=== PATIENT | male | born 1980 | race Caucasian/White ===

== ENCOUNTER 2017-03-17 21:36 | Emergency (ER) | payer OTHER ==
[2017-03-17] MEDS ORDERED: HYDROmorphone 1 MG/ML 1 ML SYRINGE IVP STA (22:01)
[2017-03-17] MEDS ORDERED: ONDANSETRON 4 MG/2 ML VIAL IVP STA (22:01)
[2017-03-17] MEDS ORDERED: KETOROLAC 30 MG/ML 1 ML VIAL IVP STA (22:01)
[2017-03-17] MEDS ORDERED: SODIUM CHLORIDE 0.9% 1,000 ML IV STA (22:01)
[2017-03-17 22:49] LABS: Basophils % (A) 1 %; CH 32.9; CHCM 35.7; Eosinophils # (A) 0.2 k/uL (0-0.7); Eosinophils % (A) 3 %; HCT 44.5 % (39.0-53.0); HDW 2.81; HGB 15.4 gm/dL (13.0-17.5); Luc # (Auto) 0.16; Luc % (Auto) 2; Lymphocytes # (A) 2.3 k/uL (1.0-4.8); Lymphocytes % (A) 31 %; MCHC 34.5 g/dL (31.0-37.0); MCV 92.7 fL (80.0-100.0); Mean Platelet Volume 7.8; Monocytes # (A) 0.4 k/uL (0-1.0); Monocytes % (A) 5 %; Neutrophils # (A) 4.3 k/uL (1.3-7.7); Neutrophils % (A) 58 %; RDW 12.8 % (11.5-15.5); WBC 7.3 k/uL (3.8-10.6)
[2017-03-17 22:54] LABS: Amorphous Sediment,Urine Rare /hpf; Appearance,Urine Cloudy (Clear); Bacteria,Urine Rare /hpf; Bilirubin,Urine Negative (Negative); Glucose,Urine (UA) Negative (Negative); Ketones,Urine Negative (Negative); Leukocyte Esterase,Urine Negative (Negative); Mucus,Urine Rare /hpf; Nitrite,Urine Negative (Negative); PH, Urine 6.5 (5.0-8.0); Particle Count 4681; Protein,Urine Negative (Negative); RBC,Urine 115 /hpf (0-5); Specific Gravity,Urine 1.013 (1.001-1.035); Squamous Epithelial Cell,Urine 1 /hpf (0-4); UA Billing (MACRO vs. MICRO) MICRO; Urobilinogen,Urine <2.0 mg/dL (<2.0); WBC,Urine 3 /hpf (0-5)
[2017-03-17 22:55] LABS: ALT 56 U/L (21-72); AST 32 U/L (17-59); Alkaline Phosphatase 78 U/L (38-126); Amylase 52 U/L (30-110); Anion Gap 10 mmol/L; Blood Urea Nitrogen 14 mg/dL (9-20); Calcium 9.2 mg/dL (8.4-10.2); Carbon Dioxide 25 mmol/L (22-30); Chloride 105 mmol/L (98-107); Glucose 96 mg/dL (74-99); Non-African American GFR(MDRD) >60 (>60 ml/min/1.73 sqM); Potassium 3.4 mmol/L (3.5-5.1); Sodium 140 mmol/L (137-145); Total Bilirubin 0.6 mg/dL (0.2-1.3); Total Protein 7.1 g/dL (6.3-8.2)
--- NOTE | 2017-03-17 23:10 | XR ---
EXAM: XR Abdomen Complete, 2 or More Views CLINICAL HISTORY: Sharp right lower quadrant pain. TECHNIQUE: Upright frontal views of the abdomen/pelvis. Total images: 2. COMPARISON: No relevant prior studies available. FINDINGS: Intraperitoneal space: No free fluid. Gastrointestinal tract: No distended loops of bowel or air-fluid levels Bones/joints: Unremarkable as visualized. Soft tissues: Surgical clips project in the region of the right groin/scrotum. No suspicious calcification. IMPRESSION: 1. Nonobstructive bowel gas pattern. 2. No free fluid.
[2017-03-18 00:30] VITALS: RESP 17
--- NOTE | 2017-03-18 01:10 | CT ---
EXAM: CT Abdomen and Pelvis Without Intravenous Contrast CLINICAL HISTORY: Pain. TECHNIQUE: Axial computed tomography images of the abdomen and pelvis without intravenous contrast. CTDI is 11.80 mGy and DLP is 645.30 mGy-cm. CTDI is 12.50 mGy and DLP is 683.00 mGy-cm. CTDI is 12.50 mGy and DLP is 369. 60 mGy-cm. This CT exam was performed using one or more of the following dose reduction techniques: automated exposure control, adjustment of the mA and/or kV according to patient size, and/or use of iterative reconstruction technique. Coronal and sagittal reformatted images were created and reviewed. COMPARISON: No relevant prior studies available. FINDINGS: Lower thorax: No acute findings. ABDOMEN: Liver: Unremarkable. Gallbladder and bile ducts: Unremarkable. No calcified stones. Pancreas: Unremarkable. Spleen: Unremarkable. Adrenals: Unremarkable. Kidneys and ureters: There is a 3 mm stone at the right ureterovesicular junction, not resulting in significant hydronephrosis. There is subtle delay of contrast excretion on the right. Stomach and bowel: No evidence of bowel obstruction. Appendix: Normal appendix. PELVIS: Bladder: Unremarkable. No stones. Reproductive: Unremarkable as visualized. ABDOMEN and PELVIS: Intraperitoneal space: Unremarkable. No free air. No significant fluid collection. Bones/joints: Chronic appearing compression fracture of the T11 vertebral body with approximately 30% height loss anteriorly. No retropulsion or malalignment. Degenerative disc changes at L4-5. Soft tissues: Tiny fat-containing midline ventral abdominal hernia above the umbilicus, associated with mild inflammatory changes. Vasculature: Unremarkable as visualized. No abdominal aortic aneurysm. Lymph nodes: No enlarged lymph nodes. IMPRESSION: 1. There is a 3 mm stone at the right ureterovesicular junction, not resulting in significant hydronephrosis. 2. Normal appendix. 3. Tiny fat-containing midline ventral abdominal hernia above the umbilicus, associated with mild inflammatory changes. Recommend correlation with clinical exam findings to exclude entrapment of herniated fat. 4. No evidence of bowel obstruction. 5. Chronic appearing compression fracture of the T11 vertebral body with approximately 30% height loss anteriorly. No retropulsion or malalignment.
[2017-03-18 01:13] VITALS: BP 143/91; PULSE 68
[2017-03-18] MEDS ORDERED: TAMSULOSIN 0.4 MG CAP.ER.24H PO STA (01:18)
[2017-03-18] MEDS ORDERED: ACET/COD 300 MG/30 MG STARTER PACK 6 TAB BTL PO STA (01:18)
--- NOTE | 2017-03-18 01:18 | ED ---
Abdominal Pain HPI - General Chief Complaint: Abdominal Pain Stated Complaint: Right Side Abd Pain Time Seen by Provider: 03/17/17 21:44 Source: patient Mode of arrival: ambulatory Limitations: no limitations - History of Present Illness Initial Comments: 36-year-old male patient presents to emergency department today with complaints of sudden onset right flank and right lower quadrant abdominal pain. Patient states he was walking to the kitchen, was struck with a sudden sharp pain to the right lower quadrant. States that he doubled over. he states the pain is constant. He was currently rating it at a 9 out of 10 on the pain scale. Patient states that the pain has not lessened up since then. Patient states this started approximately one hour ago. He states that he has been nauseated and did vomit twice. He states the pain radiates into his back. He denies any difficulty urinating. Denies any hematuria. He states throughout the day today he has felt fine and the onset of pain was the first symptom. He denies ever having similar symptoms. Patient denies any recent rash, fever, chills, shortness breath, chest pain, diarrhea, constipation, back pain, numbness, tingling, dizziness, weakness, hematuria, dysuria, urinary urgency, urinary frequency, headache, visual changes, or any other complaints. - Related Data Home Medications Medication Instructions Recorded Confirmed Ibuprofen [Motrin] 800 mg PO 03/17/17 oxyCODONE-APAP 5-325MG [Percocet 1 tab PO Q6HR PRN 03/17/17 03/17/17 5-325 mg] Previous Rx's Medication Instructions Recorded Hydrocodone/Acetaminophen [[place] 1 tab PO Q6HR PRN #15 tab 03/18/17 5-325] Ibuprofen [Motrin] 600 mg PO Q8HR PRN #30 tab 03/18/17 Tamsulosin HCl [Flomax] 0.4 mg PO DAILY #7 cap 03/18/17 Allergies Allergy/AdvReac Type Severity Reaction Status Date / Time No Known Allergies Allergy Verified 01/13/15 05:06 Review of Systems ROS Statement: Those systems with pertinent positive or pertinent negative responses have been documented in the HPI. ROS Other: All systems not noted in ROS Statement are negative. Past Medical History Past Medical History: No Reported History Additional Past Medical History / Comment(s): neuropathy History of Any Multi-Drug Resistant Organisms: None Reported Past Surgical History: Back Surgery, Hernia Repair Additional Past Surgical History / Comment(s): vasectomy Past Psychological History: No Psychological Hx Reported Smoking Status: Never smoker Past Alcohol Use History: Occasional Past Drug Use History: None Reported General Exam Limitations: no limitations General appearance: alert, in distress (mild), other (this is a well-developed well-nourished adult male patient in mild distress. Vital signs upon presentation her temperature 97.2F, pulse 71, respirations 18, 159/109, pulse ox 100%.) Eye exam: Present: normal appearance, PERRL, EOMI. Absent: scleral icterus, conjunctival injection, periorbital swelling ENT exam: Present: normal exam, normal oropharynx, mucous membranes moist Respiratory exam: Present: normal lung sounds bilaterally. Absent: respiratory distress, wheezes, rales, rhonchi, stridor Cardiovascular Exam: Present: regular rate, normal rhythm, normal heart sounds. Absent: systolic murmur, diastolic murmur, rubs, gallop, clicks GI/Abdominal exam: Present: soft, normal bowel sounds. Absent: distended, tenderness (nontender over the right lower quadrant.), guarding, rebound, rigid Extremities exam: Present: normal inspection, full ROM, normal capillary refill. Absent: tenderness, pedal edema, joint swelling, calf tenderness Back exam: Present: normal inspection. Absent: tenderness, CVA tenderness (R), CVA tenderness (L) Neurological exam: Present: alert, oriented X3, CN II-XII intact Psychiatric exam: Present: normal affect, normal mood Skin exam: Present: warm, dry, intact, normal color. Absent: rash Course Vital Signs 03/17/17 03/18/17 03/18/17 21:37 00:30 01:12 Temperature 97.2 F L 98.0 F Pulse Rate 71 64 68 Respiratory 18 17 Rate Blood Pressure 159/109 141/89 143/91 O2 Sat by Pulse 100 99 98 Oximetry 03/18/17 01:40 Temperature 98.3 F Pulse Rate Respiratory Rate Blood Pressure O2 Sat by Pulse Oximetry Medical Decision Making - Medical Decision Making 36-year-old male patient presented for evaluation of right flank and right lower quadrant abdominal pain. Serum labs are unremarkable. Urinalysis did show moderate blood, 115 red blood cells, rare amorphous sediment, rare bacteria , 3 hyaline casts, and rare urine mucus. CT of the abdomen and pelvis did show a 3 mm nonobstructing stone in the right ureteral vesicular junction which is felt to be causing his pain. CT of the abdomen also did show a ventral hernia above the umbilicus with possible inflammation changes. Did reevaluate patient , patient is nontender over the area, there appears to be no outward signs of inflammation. Patient denies any pain to the area. He was instructed to follow -up with his primary care physician for further evaluation of this. He will be discharged home with instructions to follow-up with urology. He is instructed to take medications given as directed. He was given prescriptions for ibuprofen , [place], and Flomax. He was given 1 Flomax here in the department. He is instructed to return here immediately for any new, worsening, or concerning symptoms. Patient verbalizes understanding and agrees this plan. - Lab Data Result diagrams: 03/17/17 22:30 03/17/17 22:30 Lab Results 03/17/17 03/17/17 03/17/17 Range/Units 22:30 22:30 22:30 WBC 7.3 (3.8-10.6) k/uL RBC 4.80 (4.30-5.90) m/uL Hgb 15.4 (13.0-17.5) gm/dL Hct 44.5 (39.0-53.0) % MCV 92.7 (80.0-100.0) fL MCH 32.0 (25.0-35.0) pg MCHC 34.5 (31.0-37.0) g/dL RDW 12.8 (11.5-15.5) % Plt Count 180 (150-450) k/uL Neutrophils % 58 % Lymphocytes % 31 % Monocytes % 5 % Eosinophils % 3 % Basophils % 1 % Neutrophils # 4.3 (1.3-7.7) k/uL Lymphocytes # 2.3 (1.0-4.8) k/uL Monocytes # 0.4 (0-1.0) k/uL Eosinophils # 0.2 (0-0.7) k/uL Basophils # 0.0 (0-0.2) k/uL Sodium 140 (137-145) mmol/L Potassium 3.4 L (3.5-5.1) mmol/L Chloride 105 (98-107) mmol/L Carbon Dioxide 25 (22-30) mmol/L Anion Gap 10 mmol/L BUN 14 (9-20) mg/dL Creatinine 0.80 (0.66-1.25) mg/dL Est GFR (MDRD) Af Amer >60 (>60 ml/min/1.73 sqM) Est GFR (MDRD) Non-Af >60 (>60 ml/min/1.73 sqM) Glucose 96 (74-99) mg/dL Calcium 9.2 (8.4-10.2) mg/dL Total Bilirubin 0.6 (0.2-1.3) mg/dL AST 32 (17-59) U/L ALT 56 (21-72) U/L Alkaline Phosphatase 78 (38-126) U/L Total Protein 7.1 (6.3-8.2) g/dL Albumin 4.4 (3.5-5.0) g/dL Amylase 52 (30-110) U/L Lipase 67 (23-300) U/L Urine Color Yellow Urine Appearance Cloudy (Clear) Urine pH 6.5 (5.0-8.0) Ur Specific [place] 1.013 (1.001-1.035) Urine Protein Negative (Negative) Urine Glucose (UA) Negative (Negative) Urine Ketones Negative (Negative) Urine Blood Moderate H (Negative) Urine Nitrite Negative (Negative) Urine Bilirubin Negative (Negative) Urine Urobilinogen <2.0 (<2.0) mg/dL Ur Leukocyte Esterase Negative (Negative) Urine RBC 115 H (0-5) /hpf Urine WBC 3 (0-5) /hpf Ur Squamous Epith Cells 1 (0-4) /hpf Amorphous Sediment Rare H (None) /hpf Urine Bacteria Rare H (None) /hpf Hyaline Casts 3 H (0-2) /lpf Urine Mucus Rare H (None) /hpf - Radiology Data Radiology results: report reviewed, image reviewed Two-view abdomen x-ray shows no free fluid in the intraperitoneal space. GI track shows no distended bowel loops or air-fluid levels. Bones and joints are unremarkable was visualized. Soft tissue show surgical clips projected in the region of the right groin/scrotum. No suspicious calcification. Impression by Dr. Gutierrez shows nonobstructive bowel gas pattern. No free fluid. CT of the abdomen and pelvis was reviewed in its entirety. Impression by Dr. Gutierrez shows a 3 mm stone in the right ureterovesicular junction, now resulting in significant hydronephrosis. Normal appendix. Tiny fat containing midline ventral abdominal hernia above the umbilicus, associated with mild inflammatory changes. Recommend correlation with clinical exam findings to exclude entrapment of herniated fat. No evidence of bowel obstruction. Chronic- appearing compression fracture of the T11 vertebral body with approximately 30% height loss anteriorly. No retropulsion or malalignment. Disposition Clinical Impression: Kidney stone on right side Disposition: HOME SELF-CARE Condition: Good Instructions: Kidney Stones (ED), How to Strain Your Urine (ED), Flank Pain (ED ) Additional Instructions: Increase fluids. Take medications as directed. Follow-up with urology over the next 1-2 days. Return here immediately for any new, worsening, or concerning symptoms. Prescriptions: Hydrocodone/Acetaminophen [[place] 5-325] 1 tab PO Q6HR PRN #15 tab PRN Reason: Pain Ibuprofen [Motrin] 600 mg PO Q8HR PRN #30 tab PRN Reason: Pain Tamsulosin HCl [Flomax] 0.4 mg PO DAILY #7 cap Referrals: Riky Nevarez DO [Primary Care Provider] - 1-2 days Wilmar Hermosillo MD [STAFF PHYSICIAN] - 1-2 days Time of Disposition: 01:17
[2017-03-18] MEDS ORDERED: ONDANSETRON 4 MG ODT STARTER PACK 2 TAB BTL PO STA (01:19)
[2017-03-18 01:41] VITALS: TEMP 98.3
== END 2017-03-18 01:41 | disposition home or self-care (01) ==
LOC: EC 21:36
DX: N20.0 Calculus of kidney (principal); Z79.1 Long term (current) use of non-steroidal anti-inflammatories (NSAID)
CPT/HCPCS: 36415; 80053; 82150; 83690; 85025; 81001; 74000; 74176; 99284; 96374; 96375 ×2; 96361 ×3; J2405; J1885; J1170; Q9967; S0119

== ENCOUNTER → 2019-07-23 | Outpatient (CLI) | payer OTHER ==
--- NOTE | 2019-07-23 09:15 | US ---
EXAMINATION TYPE: US abdomen complete DATE OF EXAM: 07/23/2019 COMPARISON: NONE CLINICAL HISTORY: R19.07 Generalized intraabdominal and pelvic swell. NPO. Hx umbilical hernia repai r. EXAM MEASUREMENTS: Liver Length: 18.5 cm Gallbladder Wall: 0.3 cm CBD: 0.3 cm Spleen: 12.2 cm Right Kidney: 10.8 x 6.1 x 5.2 cm Left Kidney: 10.9 x 5.5 x 6.4 cm Pancreas: Tail obscured by overlying bowel gas Liver: appears enlarged in size. There is increased echogenicity of the hepatic parenchyma with dimi nished visualization of the portal triads most commonly relating to hepatic steatosis and limiting ev aluation for underlying hepatic masses. Gallbladder: nonvascular, nonmobile lesion adjacent to wall = 0.5 x 0.4 cm. Second possible 3 mm les ion is also seen along the gallbladder wall. Evidence for sonographic Ruiz's sign: neg CBD: wnl Spleen: wnl Right Kidney: No hydronephrosis or masses seen Left Kidney: No hydronephrosis or masses seen Upper IVC: Obscured by overlying bowel gas Abd Aorta: Proximal obscured by overlying bowel gas Superior to umbilicus, break in muscle seen with peristalsing bowel visualized protruding through - 1.4 cm The intrahepatic portion of the IVC and proximal abdominal aorta are within normal limits. There is no evidence of cholelithiasis. Common bile duct is unremarkable. The visualized portions of the [place] are homogenous. The spleen is unremarkable. Kidneys are symmetric and free of hydronephrosis. No renal lesions are seen. IMPRESSION: 1. Supraumbilical ventral hernia containing peristalsing bowel. Correlate clinically for reducibility . 2. Nonmobile 5 mm gallbladder polyp with possible second smaller possible 3 mm polyp. Annual surveill ance with ultrasound is recommended for polyps of this size. 3. Hepatomegaly and sonographic findings most commonly related to hepatic steatosis. Correlate with l iver function tests.
== END | disposition home or self-care (01) ==
LOC: RADUSWWP 08:07
DX: K43.9 Ventral hernia without obstruction or gangrene (principal); K82.4 Cholesterolosis of gallbladder; R16.0 Hepatomegaly, not elsewhere classified
CPT/HCPCS: 76700

== ENCOUNTER → 2019-10-27 | Outpatient (CLI) | payer OTHER | END | disposition home or self-care (01) | LOC: LABWHC1 11:47 | PROVIDERS: ATTEND Surgery Plastic and Reconstructive Surgery | DX: U07.1 COVID-19 (principal) | CPT/HCPCS: 87635 ==

== ENCOUNTER 2019-10-30 12:34 | Day surgery (SDC) | payer OTHER ==
[2019-10-29 08:54] VITALS: BMI 29.2
--- NOTE | 2019-10-30 12:11 | P.GSHP ---
History of Present Illness H&P Date: 10/30/19 CHIEF COMPLAINT: Cholecystitis HISTORY OF PRESENT ILLNESS: The patient is a 38-year-old male who presents with history of epigastric including right upper quadrant abdominal pain. He underwent diagnostic studies for the gallbladder. Separately his clinical picture was consistent with cholecystitis. Now he presents for surgical intervention. PAST MEDICAL HISTORY: Please see list PAST SURGICAL HISTORY: Please see list MEDICATIONS: Please see list ALLERGIES: Denies. SOCIAL HISTORY: No illicit drug use or recent tobacco use FAMILY HISTORY: Pertinent for gallbladder disease REVIEW OF ORGAN SYSTEMS: CONSTITUTIONAL: No reports of fevers or chills. HEENT: Denies any troubles with the vision or hearing. ENDOCRINE: No reports of hypothyroidism. No diabetes. RESPIRATORY: No recent pneumonias. CARDIOVASCULAR: Denies chest pain or palpitations GI: No blood in stools or constipation. MUSCULOSKELETAL: Has occasional joint pain including back pain. NEURO: No seizure disorders or headaches. No recent stroke. PSYCH: No depression or suicidal ideation. HEMATOLOGIC: No personal or family history of DVTs or pulmonary emboli. PHYSICAL EXAM: VITAL SIGNS: Afebrile vital signs stable GENERAL: Well-developed pleasant male in no acute distress. HEENT: No scleral icterus. Extraocular movements grossly intact. Moist buccal mucosa. NECK: Supple without lymphadenopathy. CHEST: Unlabored respirations. Equal bilateral excursions. CARDIOVASCULAR: Regular rate regular rhythm rhythm. Distal 2+ pulses. ABDOMEN: Soft, nondistended. Tender along the epigastrium and right upper quadrant. MUSCULOSKELETAL: No clubbing, cyanosis, or edema. NEURO : No focal or lateralizing signs. Cranial nerves II-12 within normal limits. PSYCH: Alert and oriented to person, place and time. SKIN: Well perfused. Good skin turgor. ASSESSMENT: 1. Epigastric and right upper quadrant abdominal pain 2. Chronic cholecystitis PLAN: 1. Will need a robotic cholecystectomy possible open. Benefits and risks were described. 2. Heparin for DVT prophylaxis 5000 units. 3. Antibiotic prophylaxis. Past Medical History Past Medical History: No Reported History, Hyperlipidemia, Hypertension Additional Past Medical History / Comment(s): neuropathy. GALLBLADDER DISORDER. HAS HERNIA History of Any Multi-Drug Resistant Organisms: None Reported Past Surgical History: Back Surgery, Hernia Repair Additional Past Surgical History / Comment(s): vasectomy Past Anesthesia/Blood Transfusion Reactions: No Reported Reaction Smoking Status: Never smoker - Past Family History Father Family Medical History: Cancer Medications and Allergies Home Medications Medication Instructions Recorded Confirmed Type Cholecalciferol [Vitamin D3 (25 1,000 unit PO DAILY 10/29/19 10/29/19 History Mcg = 1000 Iu)] DULoxetine HCL [Cymbalta] 60 mg PO HS 10/29/19 10/29/19 History Gabapentin [Neurontin] 800 mg PO BID 10/29/19 10/29/19 History Gemfibrozil [Lopid] 600 mg PO AC-BID 10/29/19 10/29/19 History Metoprolol Tartrate [Lopressor] 50 mg PO BID 10/29/19 10/29/19 History Potassium Gluconate 99 mg PO BID 10/29/19 10/29/19 History hydrOXYzine PAMOATE [Vistaril] 25 mg PO BID 10/29/19 10/29/19 History Allergies Allergy/AdvReac Type Severity Reaction Status Date / Time No Known Allergies Allergy Verified 10/29/19 08:45
[~2019-10-30 12:34] MED LIST: DEXAMETHASONE SOD PHOSPHATE 10 MG/ML 1 ML VIAL IV ONE; HEPARIN SODIUM,PORCINE 5,000 UNIT/ML 1 ML VIAL SQ ONE; INDOCYANINE GREEN 25 MG VIAL IV STA; LACTATED RINGERS 1,000 ML IV SCH; ONDANSETRON 4 MG/2 ML VIAL IVP ONE
[2019-10-30] MEDS ORDERED: LIDOCAINE 1% (10MG/ML) FOR IV START INTRADERMA ONE (13:15)
[2019-10-30] MEDS ORDERED: ACETAMINOPHEN TAB 500 MG TAB PO ONE (13:22)
[2019-10-30] MEDS ORDERED: ACETAMINOPHEN TAB 500 MG TAB PO STA (13:24)
[2019-10-30 13:27] LABS: Basophils % (A) 1 %; Eosinophils # (A) 0.6 k/uL (0-0.7); Eosinophils % (A) 13 %; HCT 40.1 % (39.0-53.0); HGB 13.5 gm/dL (13.0-17.5); Lymphocytes # (A) 1.7 k/uL (1.0-4.8); Lymphocytes % (A) 34 %; MCH 31.1 pg (25.0-35.0); MCHC 33.6 g/dL (31.0-37.0); MCV 92.5 fL (80.0-100.0); Monocytes # (A) 0.3 k/uL (0-1.0); Monocytes % (A) 6 %; Neutrophils # (A) 2.2 k/uL (1.3-7.7); Neutrophils % (A) 44 %; Platelet Count 228 k/uL (150-450); RBC 4.34 m/uL (4.30-5.90); RDW 12.6 % (11.5-15.5)
[2019-10-30] MEDS ORDERED: PROPOFOL 10 MG/ML 20 ML VIAL IV ONE (15:07)
[2019-10-30] MEDS ORDERED: fentaNYL (PF) 50 MCG/ML 2 ML AMP ONE (15:07)
[2019-10-30] MEDS ORDERED: ROCURONIUM BROMIDE 10 MG/ML 5 ML VIAL IV ONE (15:07)
[2019-10-30] MEDS ORDERED: INDOCYANINE GREEN 25 MG VIAL IV ONE (15:07)
[2019-10-30] MEDS ORDERED: MIDAZOLAM 2 MG/2 ML VIAL ONE (15:07)
[2019-10-30] MEDS ORDERED: BUPIVACAIN-EPI 0.25%-1:200,000 30 ML VIAL SQ ONE (15:07)
[2019-10-30] MEDS ORDERED: NEOSTIGMINE 1 MG/ML 10 ML VIAL ONE (15:07)
[2019-10-30] MEDS ORDERED: SUCCINYLCHOLINE CHLORIDE VIAL 200 MG/10 ML VIAL IV ONE (15:07)
[2019-10-30] MEDS ORDERED: KETOROLAC 30 MG/ML 1 ML VIAL ONE (15:07)
[2019-10-30] MEDS ORDERED: LIDOCAINE 1% INJ 10MG/ML (20 ML MDV) ONE (15:07)
[2019-10-30] MEDS ORDERED: GLYCOPYRROLATE 0.2 MG/ML 2 ML VIAL ONE (15:07)
[2019-10-30] MEDS ORDERED: HYDROmorphone (PF) 1 MG/ML ONE (15:07)
[2019-10-30] MEDS ORDERED: LACTATED RINGERS 1,000 ML IV ONE ×2 (15:42→17:15)
--- NOTE | 2019-10-30 16:29 | P.OP ---
Date of Procedure: 10/30/19 Description of Procedure: SURGEON: CATARINO CAT MD PREOPERATIVE DIAGNOSES: 1. Right upper quadrant abdominal pain 2. Chronic cholecystitis POSTOPERATIVE DIAGNOSES: 1. Right upper quadrant abdominal pain 2. Chronic cholecystitis OPERATION: Robotic-assisted da Zulema Xi laparoscopic cholecystectomy, multiport with FIREFLY ESTIMATED BLOOD LOSS: 5 mL. SPECIMENS REMOVED: Gallbladder. COMPLICATIONS: None. OPERATIVE FINDINGS: 1. Chronic cholecystitis INDICATIONS: The patient is a 38-year-old male who presents with cholelcystitis. Surgical intervention with a laparoscopic cholecystectomy was described. Robotic assisted laparoscopic approach was described. Benefits and risks of the procedure including but not limited to bleeding, infection, injury to the biliary tree was described. Informed consent was obtained. DESCRIPTION OF PROCEDURE: Patient was brought to the operating room, placed in supine position. After general induction, the abdomen had been prepped and draped in standard sterile fashion. The robotic da Zulema XI system was primed. After a timeout protocol was performed, the patient had been prepped and draped in standard sterile fashion. The patient was injected with indocyanine green. A 5 mm 0 degrees laparoscopic trocar entry was performed along the left upper quadrant. The abdomen insufflated to 15 mmHg pressure which was tolerated well. Diagnostic laparoscopy demonstrated no injury to bowel viscera or mesentery. The liver surface was unremarkable. Next, two 8 mm robotic ports were placed along the right upper abdomen. The camera 8-mm port was maintained along the epigastrium. Another 8 mm port was placed along the left upper abdominal wall after exchanging the 5 mm port. Please note that the ports were placed at least 10 to 15 cm away from the target anatomy of the gallbladder. The robot was docked along the left lateral abdomen. The patient was repositioned in reverse Trendelenburg position. Using a grasper for arm 3, a grasper for arm 4, including hook cautery for arm 1, the robotic system was docked and primed as described. Instruments were interchanged by the administration assistant including hook cautery, Bovie cautery and clip appliers. I had sat at the console. The gallbladder fundus was retracted over the dome of the liver. Initial attention was brought to the infundibulum including cystic lymph node. Initial dissection was performed over the cystic lymph node at the infundibulum using hook cautery. The infundibulum was retracted laterally to expose the cystic duct away from the common bile duct. The cystic duct including the cystic artery were dissected free from its surrounding tissue. FIREFLY was used to identify the cystic artery and cystic structures. A critical view of safety was obtained. Large PLASTIC clips were used throughout the entire case. Using a clip doctor chiropractic, 2 clips were placed along the cystic duct away from the common bile duct. The cystic duct was divided between clips.. Next, the cystic artery was similarly clipped and cauterized. Electro-Bovie cautery was used to remove the gallbladder from the hepatic fossa. Hemostasis was checked and found to be adequate. The robot was undocked. I re-scrubbed into the case. Using a 10 mm Endo Catch bag via the left upper quadrant incision, the specimen was removed from the abdominal cavity. Yung Bhakta 0 Vicryl was used to close the fascial defect. All pneumoperitoneum instruments were evacuated from the abdominal cavity. The incisions were reapproximated using 4-0 Monocryl in an interrupted subcuticular fashion. Fascial defects were less than 8 mm in size. Please note along the trocar sites, local anesthetic was placed as a field block prior to insertion of all instruments. Liquid glue was applied to the skin. At the end of the procedure needle, sponge, and instrument count had been verified correct by the surgical supply assistant. The patient was transferred to postanesthesia care unit in stable condition. Intraoperative films were shared with the patient's family who were pleased with the level of care.
[2019-10-30] MEDS: HYDROmorphone 0.5 MG/0.5 ML SYRINGE IVP PRN ×2 (16:30→17:03)
[2019-10-30 16:32] VITALS: TEMP 97
[2019-10-30 16:42] LABS: ALT 31 U/L (4-49); AST 37 U/L (17-59); African American GFR (CKD) >90 (>60 ml/min/1.73 sqM); Albumin 4.1 g/dL (3.5-5.0); Alkaline Phosphatase 81 U/L (38-126); Anion Gap 6 mmol/L; Blood Urea Nitrogen 13 mg/dL (9-20); Calcium 9.1 mg/dL (8.4-10.2); Carbon Dioxide 26 mmol/L (22-30); Chloride 107 mmol/L (98-107); Glucose 86 mg/dL (74-99); Non-African American GFR(CKD) >90 (>60 ml/min/1.73 sqM); Potassium 4.4 mmol/L (3.5-5.1); Sodium 139 mmol/L (137-145); Total Bilirubin 0.7 mg/dL (0.2-1.3); Total Protein 6.8 g/dL (6.3-8.2)
[2019-10-30 17:24] VITALS: RESP 18
[2019-10-30 17:51] VITALS: BP 122/73; PULSE 50
== END 2019-10-30 18:20 | disposition home or self-care (01) ==
LOC: OR 12:34
PROVIDERS: ATTEND Surgery Plastic and Reconstructive Surgery
DX: K81.1 Chronic cholecystitis (principal); I10 Essential (primary) hypertension; E78.5 Hyperlipidemia, unspecified; F41.9 Anxiety disorder, unspecified; G62.9 Polyneuropathy, unspecified; F32.9 Major depressive disorder, single episode, unspecified; Z98.890 Other specified postprocedural states; Z79.899 Other long term (current) drug therapy; Z98.52 Vasectomy status; Z80.9 Family history of malignant neoplasm, unspecified
CPT/HCPCS: 88304; 80053; 85025; 47562; J2250; J0330; J1644; J1100; J2710; J0690; J2405; J2001; J3010; J1885; J1170 ×2; J2704

== ENCOUNTER → 2020-01-21 | Outpatient (CLI) | payer OTHER ==
[2020-01-21 14:35] LABS: HCT 43.4 % (39.0-53.0); HGB 14.4 gm/dL (13.0-17.5); MCH 30.6 pg (25.0-35.0); MCHC 33.2 g/dL (31.0-37.0); MCV 92.3 fL (80.0-100.0); Platelet Count 250 k/uL (150-450); RDW 12.5 % (11.5-15.5); WBC 5.7 k/uL (3.8-10.6)
[2020-01-21 20:41] LABS: Gliadin AB IgA, Deaminated NEGATIVE (NEGATIVE); Gliadin AB IgA, Unit <0.2 U/mL; Gliadin AB IgG, Deaminated NEGATIVE (NEGATIVE)
[2020-01-21 20:56] LABS: ALT 25 U/L (10-49); AST 23 U/L (14-35); African American GFR (CKD) 96.8 (60.0-200.0); Alkaline Phosphatase 83 U/L (41-126); BUN/Creat Ratio 15.45 Ratio (12.00-20.00); C Reactive Protein <0.4 mg/dL (0.0-0.8); Calcium 9.4 mg/dL (8.7-10.3); Carbon Dioxide 25.5 mmol/L (21.6-31.8); Chloride 110 mmol/L (96-109); Globulin 2.2 g/dL (1.6-3.3); Glucose 82 mg/dL (70-110); Non-African American GFR(CKD) 83.5 (60.0-200.0); Potassium 4.4 mmol/L (3.5-5.5); Sodium 141 mmol/L (135-145); Total Bilirubin 0.6 mg/dL (0.3-1.2); Total Protein 6.6 g/dL (6.2-8.2)
[2020-01-21 21:36] LABS: Erythrocyte Sedimentation Rate 7 mm/Hr (0-15)
== END | disposition home or self-care (01) ==
LOC: LABWHC1 13:13
PROVIDERS: ATTEND Nurse Practitioner
DX: R19.7 Diarrhea, unspecified (principal)
CPT/HCPCS: 36415; 80053; 83516; 83630; 83993; 85027; 85652; 86140; 87045; 87046; 87328; 87329

== ENCOUNTER 2020-02-04 09:32 | Day surgery (SDC) | payer OTHER ==
[2020-02-02 15:36] VITALS: BMI 27.1
[~2020-02-04 09:32] MED LIST changes: -DEXAMETHASONE SOD PHOSPHATE 10 MG/ML 1 ML VIAL IV ONE; -HEPARIN SODIUM,PORCINE 5,000 UNIT/ML 1 ML VIAL SQ ONE; -INDOCYANINE GREEN 25 MG VIAL IV STA; -ONDANSETRON 4 MG/2 ML VIAL IVP ONE
[2020-02-04 10:01] VITALS: TEMP 97.2
[2020-02-04] MEDS ORDERED: PROPOFOL 10 MG/ML 20 ML VIAL IV ONE (11:01)
[2020-02-04] MEDS ORDERED: LACTATED RINGERS 1,000 ML IV ONE (11:13)
--- NOTE | 2020-02-04 11:14 | P.PCN ---
Date of Procedure: 02/04/20 Procedure(s) Performed: BRIEF HISTORY: Patient is a 39-year-old pleasant white male scheduled for an elective colonoscopy as a part of evaluation of chronic diarrhea for the last 6 years duration. PROCEDURE PERFORMED: Colonoscopy with random biopsy. PREOPERATIVE DIAGNOSIS: Chronic diarrhea IV sedation per Anesthesia. PROCEDURE: After informed consent was obtained, the patient, was brought into the endoscopy unit. IV sedation was administered by Anesthesia under continuous monitoring. Digital rectal examination was normal. Initially the Olympus CF-160 flexible video colonoscope was then inserted in the rectum, gradually advanced into the cecum without any difficulty. Careful examination was performed as the scope was gradually being withdrawn. Ileocecal valve and the appendiceal orifice were visualized and appeared normal. Prep was excellent. Terminal ileum was intubated and 20 cm visualized and appeared normal. Mucosa of the cecum, ascending colon, transverse colon, descending colon, sigmoid colon, and rectum appeared normal. Random biopsies were done from ascending and descending colon to rule out microscopic/collagenous colitis. Retroflexion was performed in the rectum and no lesions were seen. The patient tolerated the procedure well. IMPRESSION: Normal-appearing colon from rectum to cecum with no evidence of colitis or colorectal neoplasia. RECOMMENDATIONS: Findings of this examination were discussed with the patient as well as his family. He was advised to follow with the biopsy results. He'll be seen in office in 2-3 weeks.
[2020-02-04 11:25] VITALS: RESP 20
[2020-02-04 11:33] VITALS: BP 128/80; PULSE 59
== END 2020-02-04 11:59 | disposition home or self-care (01) ==
LOC: ORWHC2ENDO 09:32
PROVIDERS: ATTEND Internal Medicine Gastroenterology
DX: K52.9 Noninfective gastroenteritis and colitis, unspecified (principal); I10 Essential (primary) hypertension; Z79.899 Other long term (current) drug therapy; Z90.49 Acquired absence of other specified parts of digestive tract; Z98.890 Other specified postprocedural states
CPT/HCPCS: 88305; 45380; J2704

== ENCOUNTER → 2020-06-23 | Outpatient (CLI) | payer OTHER ==
--- NOTE | 2020-06-23 14:47 | US ---
EXAMINATION TYPE: US kidneys/renal and bladder DATE OF EXAM: 06/23/2020 COMPARISON: NONE CLINICAL HISTORY: 39-year-old male N20.0 KIDNEY STONE. TECHNIQUE: Multiple sonographic images of the kidneys and bladder are obtained. FINDINGS: EXAM MEASUREMENTS: Right Kidney: 11.1 x 4.8 x 5.4 cm Left Kidney: 11.2 x 5.8 x 5.3 cm Right Kidney: no evidence of hydronephrosis Left Kidney: dense echogenic focus lower pole = 0.7cm. No hydronephrosis. Bladder: appears wnl Bilateral Jets seen: no Mild increased echogenicity of the liver relative to the adjacent right kidney. IMPRESSION: 1. Findings suggest a 7 mm left lower pole renal calculus. 2. No hydronephrosis on either side. 3. Suspect mild hepatic steatosis.
== END | disposition home or self-care (01) ==
LOC: RADUSWWP 12:22
DX: N20.0 Calculus of kidney (principal)
CPT/HCPCS: 76770

== ENCOUNTER → 2020-08-30 | Outpatient (CLI) | payer OTHER ==
[2020-08-30 12:53] LABS: HCT 41.9 % (39.0-53.0); HGB 14.9 gm/dL (13.0-17.5); MCH 31.9 pg (25.0-35.0); MCHC 35.5 g/dL (31.0-37.0); MCV 90.1 fL (80.0-100.0); Mean Platelet Volume 7.8; Platelet Count 223 k/uL (150-450); RBC 4.66 m/uL (4.30-5.90); RDW 12.2 % (11.5-15.5); WBC 5.5 k/uL (3.8-10.6)
== END | disposition home or self-care (01) ==
LOC: LABPAT 11:16
PROVIDERS: ATTEND Anesthesiology
DX: Z01.818 Encounter for other preprocedural examination (principal); K43.9 Ventral hernia without obstruction or gangrene
CPT/HCPCS: 85027; 93005

== ENCOUNTER 2020-09-02 09:59 | Day surgery (SDC) | payer OTHER ==
[2020-08-26 08:54] VITALS: BMI 29.2
--- NOTE | 2020-09-02 04:55 | P.GSHP ---
History of Present Illness H&P Date: 09/02/20 CHIEF COMPLAINT: Ventral hernia HISTORY OF PRESENT ILLNESS: The patient is a 39-year-old male who presents with a history of swelling and pain along the abdomen from a hernia. Now he presents for surgical intervention. PAST MEDICAL HISTORY: Please see list. PAST SURGICAL HISTORY: Please see list. MEDICATIONS: Please see list. ALLERGIES: Please see list. SOCIAL HISTORY: No illicit drug use FAMILY HISTORY: Reports of Crohn disease or ulcerative colitis. REVIEW OF ORGAN SYSTEMS: CONSTITUTIONAL: No reports of fevers or chills. PHYSICAL EXAM: VITAL SIGNS: Stable GENERAL: Well-developed pleasant male in no acute distress. HEENT: No scleral icterus. Extraocular movements grossly intact. Moist buccal mucosa. NECK: Supple without lymphadenopathy. CHEST: Unlabored respirations. Equal bilateral excursions. CARDIOVASCULAR: Regular rate and rhythm. Distal 2+ pulses. ABDOMEN: Soft, nondistended. Palpable defect of the abdomen at umbilicus. No peritoneal signs. MUSCULOSKELETAL: No clubbing, cyanosis, or edema. ASSESSMENT: 1. Ventral hernia PLAN: 1. Recommend proceeding with robotic ventral hernia repair with mesh. 2. Benefits and risks of surgical intervention was discussed including possibility of open technique. 3. DVT prophylaxis. 4. Antibiotic prophylaxis. Past Medical History Past Medical History: Hypertension Additional Past Medical History / Comment(s): neuropathy, IBS, History of Any Multi-Drug Resistant Organisms: None Reported Past Surgical History: Back Surgery, Cholecystectomy, Hernia Repair Additional Past Surgical History / Comment(s): vasectomy, COLONOSCOPY Past Anesthesia/Blood Transfusion Reactions: No Reported Reaction Smoking Status: Never smoker - Past Family History Father Family Medical History: Cancer Medications and Allergies Home Medications Medication Instructions Recorded Confirmed Type Cholecalciferol [Vitamin D3 (25 1,000 unit PO DAILY 10/29/19 08/26/20 History Mcg = 1000 Iu)] DULoxetine HCL [Cymbalta] 60 mg PO HS 10/29/19 08/26/20 History Gabapentin [Neurontin] 800 mg PO BID 10/29/19 08/26/20 History Metoprolol Tartrate [Lopressor] 50 mg PO BID 10/29/19 08/26/20 History Potassium Gluconate 99 mg PO BID 10/29/19 08/26/20 History gemfibroziL [Lopid] 600 mg PO AC-BID 10/29/19 08/26/20 History hydrOXYzine pamoate [Vistaril] 25 mg PO BID 10/29/19 08/26/20 History Ibuprofen [Motrin] 600 mg PO Q8HR PRN #30 tab 10/30/19 08/26/20 Rx Dicyclomine [Bentyl] 10 mg PO TID 08/26/20 08/26/20 History Loperamide [Imodium] 2 mg PO QID 08/26/20 08/26/20 History Allergies Allergy/AdvReac Type Severity Reaction Status Date / Time No Known Allergies Allergy Verified 08/26/20 08:40
[~2020-09-02 09:59] MED LIST changes: +ACETAMINOPHEN TAB 500 MG TAB PO PRN; +DEXAMETHASONE SOD PHOSPHATE 4 MG/ML 1 ML VIAL IV ONE; +GABAPENTIN 300 MG CAP PO PRN; +HEPARIN SODIUM,PORCINE 5,000 UNIT/ML 1 ML VIAL SQ PRN; -LACTATED RINGERS 1,000 ML IV SCH; +LIDOCAINE 1% (10MG/ML) FOR IV START INTRADERMA PRN; +MELOXICAM 7.5 MG TAB PO PRN; +MIDAZOLAM 2 MG/2 ML VIAL IV PRN; +ONDANSETRON 4 MG/2 ML VIAL IVP ONE; +TAMSULOSIN 0.4 MG CAP.ER.24H PO PRN
[2020-09-02] MEDS: LACTATED RINGERS 1,000 ML IV SCH ×2 (11:00→14:19)
[2020-09-02] MEDS ORDERED: ONDANSETRON 4 MG/2 ML VIAL ONE (11:06)
[2020-09-02] MEDS: fentaNYL (PF) 50 MCG/ML 2 ML AMP IVP PRN ×3 (11:23→16:29)
[2020-09-02] MEDS ORDERED: fentaNYL (PF) 50 MCG/ML 2 ML AMP IV ONE (13:15)
--- NOTE | 2020-09-02 13:31 | P.ANPRN ---
Procedure Note - Anesthesia - Nerve Block Performed Bilateral Rectus Abdominis Single Time Out Performed: Yes (1121) Date of Procedure: 09/02/20 Procedure Start Time: Procedure Stop Time: Location of Patient: PreOp Indication: Acute Post-Operative Pain, Requested by Surgeon Specifically requested for management of pain by DrEdgardo: Patito Elizabeth Sedation Type: Sedate with meaningful contact maintained Preparation: Sterile Prep Position: Supine Catheter: None Needle Types: Pajunk Needle Gauge: 21 Ultrasound used to visualize needle placement: Yes Ultrasound used to observe medication spread: Yes Injectate: 0.5% Ropivacaine (see comment for volume) (20cc each side + Decadron 4mg each side) Blood Aspirated: No Pain Paresthesia on Injection Noted: No Resistance on Injection: Normal Image Stored and Saved: Yes Events: Uneventful and Well Tolerated
[2020-09-02] MEDS ORDERED: fentaNYL (PF) 50 MCG/ML 2 ML AMP ONE (14:16)
[2020-09-02] MEDS ORDERED: PROPOFOL 10 MG/ML 20 ML VIAL IV ONE (14:16)
[2020-09-02] MEDS ORDERED: MIDAZOLAM 2 MG/2 ML VIAL ONE (14:16)
[2020-09-02] MEDS ORDERED: SUCCINYLCHOLINE CHLORIDE 100 MG/5 ML SYR IV ONE (14:16)
[2020-09-02] MEDS ORDERED: GLYCOPYRROLATE 0.2 MG/ML 2 ML VIAL ONE (14:16)
[2020-09-02] MEDS ORDERED: KETAMINE 10 MG/ML 20 ML VIAL ONE (14:16)
[2020-09-02] MEDS ORDERED: NEOSTIGMINE 1 MG/ML 10 ML VIAL ONE (14:16)
[2020-09-02] MEDS ORDERED: ROPIVACAINE 5 MG/ML 30 ML VIAL ONE (14:16)
[2020-09-02] MEDS ORDERED: LIDOCAINE 1% INJ 10MG/ML (20 ML MDV) ONE (14:16)
[2020-09-02] MEDS ORDERED: ROCURONIUM 10 MG/ML (5 ML VIAL) IV ONE (14:16)
[2020-09-02] MEDS ORDERED: DEXAMETHASONE SOD PHOSPHATE 4 MG/ML 1 ML VIAL ONE (14:16)
[2020-09-02] MEDS ORDERED: BUPIVACAIN-EPI 0.5%-1:200,000 30 ML VIAL SQ ONE (14:47)
[2020-09-02] MEDS ORDERED: LACTATED RINGERS 1,000 ML IV ONE (14:48)
--- NOTE | 2020-09-02 15:47 | P.OP ---
Date of Procedure: 09/02/20 Preoperative Diagnosis: Umbilical hernia Postoperative Diagnosis: Incarcerated umbilical hernia, 2 cm Procedure(s) Performed: Robotic repair of incarcerated umbilical hernia 2 cm with mesh Anesthesia: [facility], [facility] Surgeon: Patito Elizabeth Pathology: other (Incarcerated umbilical hernia) Condition: stable Disposition: same day Operative Findings: Incarcerated umbilical hernia sac containing 2 cm oversewn with mesh placement as overlay Plan - Discharge Summary Discharge Rx Participant: No New Discharge Prescriptions: New Ibuprofen [Motrin] 600 mg PO Q8HR PRN #30 tab PRN Reason: Pain Acetaminophen Tab [Tylenol Tab] 1,000 mg PO Q6HR PRN #30 tablet PRN Reason: Pain Continue Cholecalciferol [Vitamin D3 (25 Mcg = 1000 Iu)] 1,000 unit PO DAILY Metoprolol Tartrate [Lopressor] 50 mg PO BID gemfibroziL [Lopid] 600 mg PO AC-BID DULoxetine HCL [Cymbalta] 60 mg PO HS Gabapentin [Neurontin] 800 mg PO BID hydrOXYzine pamoate [Vistaril] 25 mg PO BID Potassium Gluconate 99 mg PO BID Loperamide [Imodium] 2 mg PO QID Dicyclomine [Bentyl] 10 mg PO TID Discontinued Ibuprofen [Motrin] 600 mg PO Q8HR PRN #30 tab PRN Reason: Pain Discharge Medication List Cholecalciferol [Vitamin D3 (25 Mcg = 1000 Iu)] 1,000 unit PO DAILY 10/29/19 [History] DULoxetine HCL [Cymbalta] 60 mg PO HS 10/29/19 [History] Gabapentin [Neurontin] 800 mg PO BID 10/29/19 [History] Metoprolol Tartrate [Lopressor] 50 mg PO BID 10/29/19 [History] Potassium Gluconate 99 mg PO BID 10/29/19 [History] gemfibroziL [Lopid] 600 mg PO AC-BID 10/29/19 [History] hydrOXYzine pamoate [Vistaril] 25 mg PO BID 10/29/19 [History] Dicyclomine [Bentyl] 10 mg PO TID 08/26/20 [History] Loperamide [Imodium] 2 mg PO QID 08/26/20 [History] Acetaminophen Tab [Tylenol Tab] 1,000 mg PO Q6HR PRN #30 tablet 09/02/20 [Rx] Ibuprofen [Motrin] 600 mg PO Q8HR PRN #30 tab 09/02/20 [Rx] Follow up Appointment(s)/Referral(s): Patito Elizabeth MD [STAFF PHYSICIAN] - 09/07/20 Patient Instructions/Handouts: Ventral Hernia Repair (GEN), Abdominal Binder (DC), Laparoscopic Herniorrhaphy (DC) Activity/Diet/Wound Care/Special Instructions: DO NOT REMOVE UMBILICAL DRESSING. Using antibacterial soap. No lifting over 4 pounds 4 weeks, October 03October shower. No bathtub soaks for 2 weeks, September 16 Wear abdominal binder daily for comfort except for showering. Use ice along incisions for today to prevent swelling. Discharge Disposition: HOME SELF-CARE
[2020-09-02 15:54] VITALS: TEMP 96.8
[2020-09-02] MEDS ORDERED: IBUPROFEN 200 MG TAB PO ONE (17:00)
[2020-09-02 17:45] VITALS: BP 143/91; PULSE 77; RESP 18
== END 2020-09-02 18:03 | disposition home or self-care (01) ==
LOC: OR 09:59
PROVIDERS: ATTEND Surgery Plastic and Reconstructive Surgery
DX: K42.0 Umbilical hernia with obstruction, without gangrene (principal); I10 Essential (primary) hypertension; K58.9 Irritable bowel syndrome, unspecified; G62.9 Polyneuropathy, unspecified; Z90.49 Acquired absence of other specified parts of digestive tract; Z98.890 Other specified postprocedural states; Z98.52 Vasectomy status; Z79.899 Other long term (current) drug therapy
CPT/HCPCS: 49653; S2900; 64488; 88302

== ENCOUNTER 2022-06-22 08:54 | Emergency (ER) | payer OTHER ==
[2022-06-22 09:03] VITALS: BP 131/87; PULSE 67; RESP 18; TEMP 97.7
--- NOTE | 2022-06-22 11:00 | XR ---
EXAMINATION TYPE: XR ankle complete RT DATE OF EXAM: 06/22/2022 10:33 AM INDICATION: Patient age:Male; 41 years old; Reason for study: pain; COMPARISON: 03/23/2015 TECHNIQUE: The right ankle is imaged in frontal, lateral and oblique projections. FINDINGS: There is no evidence of acute osseous pathology. The joint spaces are well-preserved without evidenc e of subluxation or dislocation. Kager's fat pad is intact. Mild soft tissue swelling around the ankl e. No radiopaque foreign bodies are identified. IMPRESSION: 1. No evidence of acute fracture. 2. Subcutaneous swelling around the ankle likely secondary to underlying soft tissue injury. Consider MRI.
--- NOTE | 2022-06-22 11:06 | XR ---
EXAMINATION TYPE: XR knee complete RT DATE OF EXAM: 06/22/2022 10:43 AM INDICATION: Patient age:Male; 41 years old; Reason for study: pain; COMPARISON: None. TECHNIQUE: The Right knee(s) was examined in Frontal, lateral and oblique projections. FINDINGS: Comminuted proximal fibular fracture. Mild shortening of the fibula. No evidence femur or t ibia fracture. Patellas intact. Prepatellar soft tissue edema. IMPRESSION: 1. Comminuted proximal fibular fracture. 2. Prepatellar soft tissue edema.
--- NOTE | 2022-06-22 11:19 | US ---
EXAMINATION TYPE: US venous doppler duplex LE RT DATE OF EXAM: 06/22/2022 11:10 AM COMPARISON: NONE CLINICAL HISTORY: pain. Edema SIDE PERFORMED: Right TECHNIQUE: The lower extremity deep venous system is examined utilizing real time linear array sonog gypsy with graded compression, doppler sonography and color-flow sonography. VESSELS IMAGED: Common Femoral Vein Deep Femoral Vein Greater Saphenous Vein * Femoral Vein Popliteal Vein Small Saphenous Vein * Proximal Calf Veins (* superficial vessels) Right Leg: Negative for DVTGrayscale, color doppler, spectral doppler imaging performed of the deep veins of the lower extremities. There is normal flow, compressibility, vascular waveforms. IMPRESSION: No evidence for right lower extremity deep vein thrombosis.
--- NOTE | 2022-06-22 11:29 | ED ---
Lower Extremity Injury HPI - General Chief Complaint: Extremity Injury, Lower Stated Complaint: post fall - rt leg injury Time Seen by Provider: 06/22/22 09:06 Source: patient, RN notes reviewed Mode of arrival: wheelchair Limitations: no limitations - History of Present Illness Initial Comments: 41-year-old male presents emergency Department chief complaint of right leg pain and swelling. Patient states that he injured this eye days ago. Patient states that he has neuropathy of his lower extremity after back injury. Patient states that he twisted his leg complaint of possible tib-fib pain and right ankle pain and swelling that he noticed. He states he noticed some bruising became concerned. noticed swelling of his right leg and which she is concerned about possible DVT. Patient has no history DVT denies any chest pain or shortness of breath. Patient states he is able to family on his leg with minimal discomfort. offers no other associated symptoms. Patient declined any pain meds. - Related Data Home Medications Medication Instructions Recorded Confirmed Cholecalciferol [Vitamin D3 (25 1,000 unit PO DAILY 10/29/19 09/02/20 Mcg = 1000 Iu)] DULoxetine HCL [Cymbalta] 60 mg PO HS 10/29/19 09/02/20 Gabapentin [Neurontin] 800 mg PO BID 10/29/19 09/02/20 Metoprolol Tartrate [Lopressor] 50 mg PO BID 10/29/19 09/02/20 Potassium Gluconate [Potassium 99 mg PO BID 10/29/19 09/02/20 Gluconate ER] gemfibroziL [Lopid] 600 mg PO AC-BID 10/29/19 09/02/20 hydrOXYzine pamoate [Vistaril] 25 mg PO BID 10/29/19 09/02/20 Dicyclomine [Bentyl] 10 mg PO TID 08/26/20 09/02/20 Loperamide [Imodium] 2 mg PO QID 08/26/20 09/02/20 Previous Rx's Medication Instructions Recorded Acetaminophen Tab [Tylenol Tab] 1,000 mg PO Q6HR PRN #30 tablet 09/02/20 Ibuprofen [Motrin] 600 mg PO Q8HR PRN #30 tab 09/02/20 Allergies Allergy/AdvReac Type Severity Reaction Status Date / Time No Known Allergies Allergy Verified 06/22/22 09:03 Review of Systems ROS Statement: Those systems with pertinent positive or pertinent negative responses have been documented in the HPI. ROS Other: All systems not noted in ROS Statement are negative. Past Medical History Past Medical History: Hypertension Additional Past Medical History / Comment(s): neuropathy, IBS, History of Any Multi-Drug Resistant Organisms: None Reported Past Surgical History: Back Surgery, Cholecystectomy, Hernia Repair Additional Past Surgical History / Comment(s): vasectomy, COLONOSCOPY Past Anesthesia/Blood Transfusion Reactions: No Reported Reaction Past Psychological History: No Psychological Hx Reported Smoking Status: Never smoker Past Alcohol Use History: Rare Past Drug Use History: None Reported - Past Family History Father Family Medical History: Cancer General Exam Limitations: no limitations General appearance: alert, in no apparent distress Head exam: Present: atraumatic, normocephalic, normal inspection Eye exam: Present: normal appearance, PERRL, EOMI. Absent: scleral icterus, conjunctival injection, periorbital swelling Respiratory exam: Present: normal lung sounds bilaterally. Absent: respiratory distress, wheezes, rales, rhonchi, stridor Cardiovascular Exam: Present: regular rate, normal rhythm, normal heart sounds. Absent: systolic murmur, diastolic murmur, rubs, gallop, clicks Extremities exam: Present: other (Rate proximal tib-fib there is mild tenderness, full range of motion at the knee, there is some ecchymosis noted on the medial aspect of right ankle, neurovascular intact there is no tenderness) Course Vital Signs 06/22/22 08:57 Temperature 97.7 F Pulse Rate 67 Respiratory 18 Rate Blood Pressure 131/87 O2 Sat by Pulse 97 Oximetry Medical Decision Making - Medical Decision Making X-ray right knee, right ankle interpreted by me there is a cute comminuted fracture proximal fibula, there is soft tissue swelling of the right ankle without obvious osseous abnormality. Patient will be discharged in knee immobilizer patient will follow-up with orthopedics return parameters were discussed. Disposition Clinical Impression: Fracture of proximal end of right fibula, Right ankle sprain Disposition: HOME SELF-CARE Condition: Stable Instructions (If sedation given, give patient instructions): Leg Fracture (ED) Additional Instructions: Please return to the Emergency Department if symptoms worsen or any other concerns. Is patient prescribed a controlled substance at d/c from ED?: No Referrals: Riky Nevarez DO [Primary Care Provider] - 1-2 days Elliot Madera DO [Doctor of Osteopathic Medicine] - 1-2 days Time of Disposition: 11:28
== END 2022-06-22 11:53 | disposition home or self-care (01) ==
LOC: EC 08:54
DX: S82.831A Other fracture of upper and lower end of right fibula, initial encounter for closed fracture (principal); S93.401A Sprain of unspecified ligament of right ankle, initial encounter; I10 Essential (primary) hypertension; Z79.899 Other long term (current) drug therapy; W19.XXXA Unspecified fall, initial encounter
CPT/HCPCS: 73562; 73610; 93971; 99284; L1830

== ENCOUNTER → 2022-07-21 | Outpatient (CLI) | payer OTHER ==
--- NOTE | 2022-07-21 13:20 | US ---
EXAMINATION TYPE: US scrotum with doppler. Grayscale and color Doppler Duplex imaging performed of trinity ruiz scrotum. DATE OF EXAM: 07/21/2022 COMPARISON: NONE CLINICAL HISTORY: N43.40 SPERMATOCELE OF EPIDIDYMIS, UNSPECIFIED. right lump EXAM MEASUREMENTS: TESTICLES: Right Testicle: 4.0 x 2.3 x 3.1 cm Left Testicle: 4.5 x 2.4 x 2.9 cm EPIDIDYMIS HEAD: Right Epididymis: 1.1 x 1.2 x .9 cm Left Epididymis: 1.0 x 1.3 x .9 cm Doppler performed to assess for testicular vascularity; good bilateral color flow and waveforms are s een. There is no evidence of testicular torsion. Presence of hydroceles: no Presence of varicoceles: Yes bilateral. IMPRESSION: 1 bilateral varicoceles. 2. No flow limiting stenosis.
== END | disposition home or self-care (01) ==
LOC: RADUSWWP 10:22
DX: I86.1 Scrotal varices (principal); N43.40 Spermatocele of epididymis, unspecified
CPT/HCPCS: 76870; 93975